=== PATIENT | female | born 1940 | race Caucasian/White ===

== ENCOUNTER 2016-11-01 20:35 | Emergency (ER) | payer SELFPAY ==
[~2016-11-01] VITALS: Ht 152.4 cm; Wt 64.8 kg
[~2016-11-01 20:35] MED LIST: CEFTIN500 MG PO; COUMADIN2.5 MG PO; LISINOPRIL10 MG PO; METOPROLOL SUCC25 MG PO; SIMVASTATIN10 MG PO; WARFARIN SODIUM5 MG PO
[2016-11-01 21:23] LABS: HEMATOCRIT 39.7 % (36.0-46.0); MCV 97.1 FL (83-99); MEAN PLAT.VOLUME 10.4 uM^3 (9.5-12.4); PLATELET COUNT 212 K/uL (156-360); RBC DIS.WIDTH-CV 14.1 % (11.8-14.6); RBC DIS.WIDTH-SD 47.9 % (39-53); RED BLOOD COUNT 4.09 M/uL (3.80-5.20); WHITE BLOOD COUNT 11.3 K/uL (4.1-10.2)
[2016-11-01 21:32] LABS: CHLORIDE 110 mEq/L (99-109); POTASSIUM 4.6 mEq/L (3.7-5.4); SODIUM 142 mEq/L (136-147)
[2016-11-01 21:34] LABS: GLUCOSE 128 mg/dL (70-99)
[2016-11-01 21:36] LABS: ANION GAP 7 MEQ/L (2-14); TOTAL BILIRUBIN 0.3 mg/dL (0.0-1.0)
[2016-11-01 21:38] LABS: ALKALINE PHOSPHATASE 84 IU/L (3-129); GFR ESTIMATE (CALCULATED) 57 mL/min/
[2016-11-01 21:39] LABS: UREA NITROGEN (BUN) 27 mg/dL (9-23)
[2016-11-01 21:42] LABS: LIPASE 22 U/L (1.0-51.0)
[2016-11-02 00:48] LABS: ADD MIUA? YES; BILIRUBIN NEGATIVE; BLOOD LARGE; COLOR YELLOW ((YELLOW)); GLUCOSE (STRIP) NEGATIVE; KETONES NEGATIVE; LEUKOCYTES LARGE; NITRITE NEGATIVE; PH, URINE 5.5 (5-8); PROTEIN (STRIP) TRACE; SPECIFIC GRAVITY 1.018 (1.000-1.030); UROBILINOGEN 0.2 MG/DL (0.2-1.0)
[2016-11-02 01:17] LABS: RED BLOOD CELLS 40-50 /HPF (0-5)
[2016-11-02 01:18] LABS: BACTERIA 3+; CASTS PRESENT /LPF; CRYSTALS NONE SEEN; EPITHELIAL CELLS RARE; MUCUS NONE SEEN; UCUL ADDED? YES; WHITE BLOOD CELLS TNTC /HPF (0-5)
[2016-11-02 01:19] LABS: FINE GRANULAR CASTS 0-5 /LPF
[2016-11-02] MEDS ORDERED: ZOFRAN ODT4 MG PO (01:56)
[2016-11-02] MEDS ORDERED: CIPRO500 MG PO (01:56)
[2016-11-02 02:05] VITALS: BP 130/81
== END 2016-11-02 02:30 | disposition home or self-care (01) ==
LOC: EME 20:35
DX: N39.0 Urinary tract infection, site not specified (principal); Z87.442 Personal history of urinary calculi; R10.31 Right lower quadrant pain; R11.2 Nausea with vomiting, unspecified; Z91.19 Patient's noncompliance with other medical treatment and regimen; R56.9 Unspecified convulsions
CPT/HCPCS: 80053; 81003; 83690; 85027; 87086; 99281; 99284

== ENCOUNTER 2017-07-17 11:20 | Emergency (ER) | payer OTHER ==
[~2017-07-17] VITALS: Ht 152.4 cm; Wt 69.0 kg
[~2017-07-17 11:20] MED LIST changes: +CIPRO500 MG PO; +ZOFRAN ODT4 MG PO
[2017-07-17 12:08] LABS: EOSINOPHIL COUNT 0.1 K/uL (0-0.3); HEMATOCRIT 40.3 % (36.0-46.0); IMMATURE GRANULOCYTE (%) 0.4 % (0.0-0.7); INSTRUMENT ABS NEUTROPHIL CT 6.3 K/uL; LYMPHOCYTE COUNT 0.6 K/uL (1.0-2.8); MCH 31.2 PG (29.0-34.0); MCHC 32.5 G/DL (30.0-36.0); MEAN PLAT.VOLUME 10.1 uM^3 (9.5-12.4); MONOCYTE (%) 8.9 % (3-12); MONOCYTE COUNT 0.7 K/uL (0-0.8); NEUTROPHIL (%) 81.5 % (45-76); NEUTROPHIL COUNT 6.3 K/uL (1.8-6.4); PLATELET COUNT 268 K/uL (156-360); RBC DIS.WIDTH-CV 13.7 % (11.8-14.6); RBC DIS.WIDTH-SD 48.4 % (39-53); WHITE BLOOD COUNT 7.8 K/uL (4.1-10.2)
[2017-07-17 12:18] LABS: CHLORIDE 106 mEq/L (99-109); POTASSIUM 4.5 mEq/L (3.7-5.4); SODIUM 144 mEq/L (136-147)
[2017-07-17 12:19] LABS: GLUCOSE 92 mg/dL (70-99)
[2017-07-17 12:21] LABS: ANION GAP 12 MEQ/L (2-14)
[2017-07-17 12:23] LABS: GFR ESTIMATE (CALCULATED) 57 mL/min/
[2017-07-17 12:24] LABS: UREA NITROGEN (BUN) 27 mg/dL (9-23)
[2017-07-17 12:38] LABS: INTER. NORMALIZED RATIO 3.3; PROTHROMBIN TIME 38.3 SEC (10.2-12.9)
[2017-07-17] MEDS ORDERED: PERCOCET 5/31 TABLET PO (16:20)
[2017-07-17 17:15] VITALS: BP 120/89
== END 2017-07-17 17:16 | disposition home or self-care (01) ==
LOC: EME 11:20
PROVIDERS: Emergency Medicine
DX: S22.42XA Multiple fractures of ribs, left side, initial encounter for closed fracture (principal); S20.212A Contusion of left front wall of thorax, initial encounter; V44.6XXA Car passenger injured in collision with heavy transport vehicle or bus in traffic accident, initial encounter; W22.10XA Striking against or struck by unspecified automobile airbag, initial encounter; Y92.410 Unspecified street and highway as the place of occurrence of the external cause; M85.88 Other specified disorders of bone density and structure, other site; I48.91 Unspecified atrial fibrillation; Z79.01 Long term (current) use of anticoagulants
CPT/HCPCS: 71260; 74177; 80048; 85025; 85610; 99281; 99284; J7030